=== PATIENT | female | born 1980 | race Asian ===

== ENCOUNTER 2017-12-05 12:55 | Outpatient (CLI) | payer OTHER ==
[2017-12-05 13:22] VITALS: BP 105/58
[2017-12-05] MEDS ORDERED: SODIUM CHLORIDE FLUSH 0.9% 10 ML SYRINGE ONE ×2 (13:26→14:53)
[2017-12-05 14:02] LABS: BILIRUBIN,URINE NEGATIVE (NEGATIVE); GLUCOSE, URINE (UA) NEGATIVE (NEGATIVE); KETONES,URINE (UA) NEGATIVE (NEGATIVE); LEUKOCYTE ESTERASE, URINE NEGATIVE (NEGATIVE); NITRITE,URINE NEGATIVE (NEGATIVE); OCCULT BLOOD,URINE NEGATIVE (NEGATIVE); PH,URINE 6.5 PH (5.0-7.5); PROTEIN,URINE NEGATIVE (NEGATIVE); UROBILINOGEN,URINE 0.2 (NORMAL) E.U./dL (NORMAL)
[2017-12-05 14:09] LABS: CLARITY,URINE CLEAR (CLEAR)
[2017-12-05] MEDS ORDERED: LACTATED RINGERS 1,000 ML IV ONE (14:49)
[2017-12-05] MEDS ORDERED: NIFEdipine 10 MG CAPSULE PO PRN (15:40)
== END 2017-12-05 17:00 | disposition home or self-care (01) ==
LOC: WFO 12:55 → FBP 13:02 → WFO 17:00
PROVIDERS: ATTEND Obstetrics & Gynecology
DX: O26.893 Other specified pregnancy related conditions, third trimester (principal); R42 Dizziness and giddiness; Z3A.32 32 weeks gestation of pregnancy
CPT/HCPCS: 81003; 82731; 87210; 87491; 87591; 99213; A9270; J7120; 81001

== ENCOUNTER 2017-12-25 22:47 | Outpatient (CLI) | payer OTHER | END 2017-12-25 22:48 | disposition home or self-care (01) | LOC: LAB.R 22:47 | PROVIDERS: ATTEND Obstetrics & Gynecology | DX: Z3A.35 35 weeks gestation of pregnancy (principal) | CPT/HCPCS: 87077; 87081 ==

== ENCOUNTER 2018-01-21 14:41 | Outpatient (CLI) | payer OTHER ==
[2018-01-21 14:56] LABS: BASOPHILS % (AUTO) 0.6 %; EOSINOPHILS # (AUTO) 0.2 10^3/uL (0.0-0.7); EOSINOPHILS % (AUTO) 3.2 %; HGB - HEMOGLOBIN 12.2 g/dL (12.0-16.0); LYMPHOCYTES # (AUTO) 1.4 10^3/uL (1.5-3.5); LYMPHOCYTES % (AUTO) 21.8 %; MEAN CORPUSCULAR HEMOGLOBIN 32.7 pg (27.0-31.0); MEAN CORPUSCULAR HGB CONC 34.8 g/dL (32.0-36.0); MEAN CORPUSCULAR VOLUME 94.1 fL (81.0-99.0); MEAN PLATELET VOLUME 8.5 fL (7.9-10.8); MONOCYTES # (AUTO) 0.6 10^3/uL (0.0-1.0); MONOCYTES % (AUTO) 9.8 %; NEUTROPHILS # (AUTO) 4.2 10^3/uL (1.5-6.6); NEUTROPHILS % (AUTO) 64.6 %; PLT - PLATELET COUNT 257 10^3/uL (130-450); RED BLOOD COUNT 3.73 10^6/uL (4.20-5.40); RED CELL DISTRIBUTION WIDTH 13.5 % (12.0-15.0); WHITE BLOOD COUNT 6.5 x10^3/uL (4.8-10.8)
== END 2018-01-21 14:42 | disposition home or self-care (01) ==
LOC: LAB 14:41
PROVIDERS: ATTEND Obstetrics & Gynecology
DX: Z01.812 Encounter for preprocedural laboratory examination (principal); O34.219 Maternal care for unspecified type scar from previous cesarean delivery
CPT/HCPCS: 36415; 85025; 86850; 86900; 86901

== ENCOUNTER 2018-01-23 05:05 | Inpatient (IN) | payer OTHER ==
--- NOTE | 2018-01-22 08:18 | PREOP HISTORY & PHYSICAL ---
DATE OF SERVICE: 01/23/2018 Physician: Enedina Fishman DO ANTICIPATED DATE OF PROCEDURE: 01/23/2018 IDENTIFICATION: This is a 37-year-old G2, P1-0-0-1 with a 39-6/7-week intrauterine . EDC is 01/24/2018. LMP is 04/19/2017 with 11-week ultrasound consistent with dates. HISTORY OF PRESENT ILLNESS: The patient presents today for a preoperative visit. She has been scheduled for 01/23/2018 delivery. The patient had a delivery with her first child at 37 weeks' gestation. She spontaneously went into labor at that time and began to show nonreassuring heart tones. She had a delivery because of this. The patient has been doing well without complaint. She was a transfer of care to us at 33 weeks' gestation. She had care in [facility] in [place], [place]. She had the majority of her care there. This has been remarkable only for the patient taking progesterone due to a history of prior conization. She really has not had any labor to our knowledge. She was on progesterone until 35 weeks' gestation. PAST MEDICAL HISTORY: None. PAST SURGICAL HISTORY 1. delivery x1 at 37 weeks' gestation. 2. Cold knife cone biopsy in [place] with resolution of dysplasia. ALLERGIES: NO KNOWN DRUG ALLERGIES. MEDICATIONS: vitamins. SOCIAL HISTORY: She denies any tobacco, alcohol, or illicit drug use. The patient is from [facility]. Her is Jj, who is in the [employer]. The patient currently is a atio-fu-awiq mother. PAST OBSTETRICAL HISTORY: One 37-week delivery secondary to nonreassuring heart tones. She plans to have more children. Her son is Abbi. This is a female fetus with anticipated name of Moni. PAST GYNECOLOGIC HISTORY: Status post cold knife cone biopsy. FAMILY HISTORY: Noncontributory. REVIEW OF SYSTEMS: Negative unless otherwise stated. She denies any nausea, vomiting, fevers, chills, diarrhea, or constipation. OBJECTIVE VITAL SIGNS: Weighs 162.8 pounds. Height is 5 feet. Blood pressure is 116/70. GENERAL: The patient is a well-developed, well-nourished [place] female in no apparent distress. She is alert and oriented x3. The patient does speak Spanish very well. HEENT: Within normal limits. CARDIOVASCULAR: Rate is regular, no murmurs or rubs. PULMONARY: Lungs are clear to auscultation bilaterally. ABDOMEN: Gravid, nontender. Fundal height is 40 cm. Baby is vertex. EFW is 8 pounds. STUDIES labs show that she is rubella immune, hepatitis B surface antigen nonreactive, RPR nonreactive, A positive, antibody screen negative. Cystic fibrosis screen is negative. The 11/05/2017 labs show white count 8.9, H and H 11.5 and 33.5, platelets 358. One-hour GTT of 104. Negative urine GC and CT in January 2017, and a Pap smear and HPV in October 2016 were both negative. She had a 08/22/2017 anatomical survey showing a cervical length of 3.6 cm with a 3-vessel umbilical cord. Normal anatomy and posterior placenta. GBS is positive. ASSESSMENT 1. A 37-year-old G2, P1-0-0-1 with a 39-6/7-week intrauterine . 2. History of delivery x1. 3. Group B streptococcus positive. PLAN 1. We will proceed to a scheduled repeat delivery on 01/23/2018. 2. We should get a CBC, type and screen today for her preop labs. 3. We will give the patient penicillin in the event that she goes into labor or spontaneously ruptures her membranes prior to her scheduled delivery. 4. I counseled the patient to take ibuprofen and Tylenol os her main form of pain control after surgery. She has been given a prescription for oxycodone should she have any breakthrough pain. 5. Patient to return on Sunday for removal of Prevena wound VAC. TD: 01/21/2018 15:09 TERE
[2018-01-23] MEDS ORDERED: CITRIC ACID/SODIUM CITRATE 15 ML UDC PO ONE (05:30)
[2018-01-23] MEDS ORDERED: ceFAZolin 2 GM/50 ML 2 GM/50 ML BAG IV ONE (05:30)
[2018-01-23] MEDS ORDERED: ONDANSETRON 4 MG/2 ML VIAL IVP PRN ×2 (05:30→08:54)
[2018-01-23] MEDS ORDERED: SODIUM CHLORIDE FLUSH 0.9% 10 ML SYRINGE IVP PRN (05:30)
[2018-01-23] MEDS: LACTATED RINGERS 1,000 ML IV SCH ×2 (05:45→16:30)
--- NOTE | 2018-01-23 07:02 | ANESTHESIA ---
Pre-Anesthesia VS, & Labs - Diagnosis Previous - Procedure Repeat c/s Height 5 ft 1 in Weight (kg) 73.936 kg - NPO >8 hours - Is Patient ?: Yes Home Medications and Allergies Active Medications Lactated Ringer's (Lr) 1,000 mls @ 150 mls/hr IV .Q6H40M CORRINA Oxytocin/Sodium Chloride (Pitocin/Sodium Chloride) 500 mls @ 1 mls/hr IV TITR CORRINA; Protocol Ondansetron HCl (Zofran Inj) 4 mg IVP Q4H PRN PRN Reason: Nausea / Vomiting Sodium Chloride (Normal Saline Flush 0.9%) 10 ml IVP PRN PRN PRN Reason: NEEDED PER PROVIDER ORDERS Sodium Chloride (Normal Saline Flush 0.9%) 10 ml IVP 0100,0900,1700 CORRINA Allergies/Adverse Reactions: Allergies Allergy/AdvReac Type Severity Reaction Status Date / Time No Known Drug Allergies Allergy Verified 01/23/18 06:20 Anes History & Medical History - Medical History Cardiovascular: reports: None Pulmonary: reports: None Gastrointestinal: reports: GERD (during ) Urinary: reports: None Neuro: reports: None Musculoskeletal: reports: None Endocrine/Autoimmune: reports: None Blood Disorders: reports: None Skin: reports: None Smoking Status: Former smoker (quit 4-5 years ago) Psychosocial: reports: No issues indicated - Surgical History Gynecologic: section, LEEP (Cervical surgery) - Obstetrical History : 2 Parity: 1 Events: positive: None Complications: positive: None Exam General: Alert, Oriented x3, Cooperative, No acute distress Dental: WNL Mouth Openin Fingerbreadth Mallampati classification: III Thyromental Distance: 4-6 cm Respiratory: Lungs clear, Normal breath sounds, No respiratory distress, No accessory muscle use Cardiovascular: Regular rate, Normal S1, Normal S2, No murmurs Mental/Cognitive Status: Alert/Oriented X3, Normal for patient Cognitive Status: Within normal limits Plan Anesthesia Type: Spinal Consent for Procedure(s) Verified and Reviewed: Yes Code Status: Attempt Resuscitation ASA classification: 2-Mild systemic disease Is this case an emergency?: No
[2018-01-23] MEDS ORDERED: OXYTOCIN/SODIUM CHLORIDE 500 ML IV SCH (07:30)
[2018-01-23] MEDS ORDERED: LACTATED RINGERS 1,000 ML IV ONE (07:59)
[2018-01-23] MEDS ORDERED: ePHEDrine 50 MG/ML VIAL IVP ONE (08:00)
[2018-01-23] MEDS ORDERED: ONDANSETRON 4 MG/2 ML VIAL IVP ONE (08:00)
[2018-01-23] MEDS ORDERED: fentaNYL 100 MCG/2 ML VIAL IVP ONE (08:00)
[2018-01-23] MEDS ORDERED: MORPHINE 10 MG/ML VIAL IVP ONE (08:00)
[2018-01-23] MEDS ORDERED: KETOROLAC 30 MG/ML VIAL IVP ONE (08:00)
[2018-01-23] MEDS ORDERED: NALBUPHINE 10 MG/ML AMP IVP PRN (08:54)
--- NOTE | 2018-01-23 08:58 | OPERATIVE REPORT ---
Operative Report - General Admit Date: 01/23/18 - Other Other Information/Narrative: Date of Operation: 01/23/2018 Surgeon: Enedina Fishman DO FACOG Nnp: NITIN Parks Production Control Planner: Shakira Owens CRNA Anesthesia: Spinal Pre-op Dx: 1. 37 yo with a 39w6d IUP 2. Prior CD x 1 Post-op Dx: 1. 37 yo with a 39w6d IUP 2. Prior CD x 1 Procedure: Repeat CD via low transverse incision Findings: Viable female fetus, VTX, "Avalyn." Apgars 9/9. Normal uterus, ovaries and fallopian tubes. Nuchal cord x 1 reduced. Specimens: 1. Cord blood 2. Placenta (to medical waste) EBL: 500 mL Drains: 1. Mcbride catheter to gravity 2. Prevena wound vacuum Complications: None [id number]
[2018-01-23] MEDS ORDERED: MAGNESIUM HYDROXIDE 2,400 MG/30 ML UDC PO PRN (08:59)
[2018-01-23] MEDS: SODIUM CHLORIDE FLUSH 0.9% 10 ML SYRINGE IVP SCH ×3 (11:13→17:16)
[2018-01-23] MEDS: oxyCODONE 5 MG TABLET PO SCH ×4 (11:36→20:43)
[2018-01-23] MEDS: DOCUSATE SODIUM 100 MG CAPSULE PO SCH (11:36)
[2018-01-23] MEDS: ACETAMINOPHEN 500 MG TABLET PO SCH ×2 (12:19→20:28)
--- NOTE | 2018-01-23 13:25 | OPERATIVE REPORT ---
DATE OF OPERATION: 01/23/2018 SURGEON: Enedina Fishman DO, FELIPA SAMPLE PATTERNMAKER: Madina Sumner CNM, PORSHA TILE ERECTOR: Shakira Owens CRNA ANESTHESIA: Spinal PREOPERATIVE DIAGNOSES 1. A 37-year-old G2, P1-0-0-1, at 39 and 6/7 week intrauterine . 2. Prior delivery x1. POSTOPERATIVE DIAGNOSES 1. A 37-year-old G2, P1-0-0-1, at 39 and 6/7 week intrauterine . 2. Prior delivery x1. PROCEDURE: Repeat delivery via low transverse uterine incision. FINDINGS: Viable female in vertex presentation named Shira. Apgars 9 and 9 at 1 and 5 minutes respectively. Otherwise normal uterus, ovaries and fallopian tubes. Nuchal cord x1 reduced. SPECIMENS: 1. Cord blood. 2. Placenta sent to medical waste. ESTIMATED BLOOD LOSS: 500 mL DRAINS 1. One Mcbride catheter to gravity. 2. Prevena wound vacuum. COMPLICATIONS: None. HISTORY OF PRESENT ILLNESS: The patient is a patient of [facility] with whom we have been seeing throughout her course. She was seen initially in [place] and later transferred care here to [facility]. The patient's has been significant for a prior delivery at 37 weeks secondary to nonreassuring heart tones. Otherwise has been an unremarkable . I discussed with the patient the risks, benefits, alternatives, indications, and expectations of a repeat delivery. Included in our discussion were the risks of hemorrhage, infection, damage to surrounding organs, which may include, but are not limited to an inadvertent laceration, cauterization or ligation of the adjacent intestines, bladder and ureters. Furthermore, the patient would most likely need to have a repeat delivery for any future pregnancies that she has given that this is her second delivery. After all of the patient's questions were answered to her satisfaction, she verbalized her desire to proceed with surgery. Consent forms have been signed. OPERATION IN DETAIL: The patient was identified and consented, taken to the operating room where IV access was already in place. She was then given satisfactory spinal anesthesia per Shakira Owens. Sequential compression devices were placed on her lower extremities and turned on. The patient was given 2 grams of Ancef prior to incision. The patient was then prepped and draped in normal sterile fashion in the dorsal supine position with a leftward tilt. A timeout was performed, which correctly identified the patient, site of procedure and procedure itself. Skin testing showed satisfactory anesthesia. The Pfannenstiel skin incision was made approximately 2 fingerbreadths above the level of pubic symphysis. It was then carried to the underlying layer of fascia with electrocautery. The fascia was then nicked in the midline and extended laterally. Rectus muscle was then dissected off the fascia. The rectus muscles were then sharply in the midline and the peritoneum entered bluntly. Peritoneum was then extended superiorly and inferiorly. A bladder flap was then created by dissecting off the vesicouterine peritoneum. The hysterotomy was made in the lower uterine segment in a transverse fashion. Amniotomy revealed clear fluid. With the help of fundal pressure, as well as a disc vacuum, the head was delivered. Nose and mouth were suctioned with a bulb syringe. Nuchal cord x1 was reduced. Again, with the help of fundal pressure, the delivered through the hysterotomy. Nose and mouth were suctioned upon delivery of the fetus. The umbilical cord was doubly clamped and cut and the infant was then handed off to the waiting OB nurses. Specimen of cord blood was obtained and sent off. The uterus was then maternal massaged and placenta delivered manually The uterus was then delivered out of the abdomen and cleared of all clots and debris. The hysterotomy was closed with two stitches of 0 Vicryl, first in a running locked fashion and then in a running fashion. Hemostasis was noted. The uterus was then returned to the abdomen and the abdomen was then copiously irrigated. Hemostasis was noted. The peritoneum was then closed with a running stitch of 2-0 Vicryl. The same stitch was used to reapproximate the rectus muscles. Fascia was then closed with 0 Vicryl. Oni fascia was then reapproximated with a single running stitch of 2-0 Vicryl. The skin was then finally closed with 4-0 Monocryl. A Prevena wound VAC was placed on top of the incision and turned on. The patient tolerated the procedure well and was taken back to the recovery room in stable and awake condition. She will be given routine care including aggressive pain control with routine Celebrex and Tylenol. She will be given oxycodone for any breakthrough pain, she may experience. All sponge, lap, and needle counts were correct x2 as per nurse report. TD: 01/23/2018 09:10 TERE
[2018-01-23] MEDS: CELECOXIB 100 MG CAPSULE PO SCH ×2 (13:43→20:28)
[2018-01-23] MEDS: SIMETHICONE CHEW 80 MG TABLET PO SCH ×2 (14:38→17:17)
[2018-01-24] MEDS: DOCUSATE SODIUM 100 MG CAPSULE PO SCH ×3 (00:15→20:37)
[2018-01-24] MEDS: oxyCODONE 5 MG TABLET PO SCH ×6 (00:16→20:36)
[2018-01-24] MEDS: ACETAMINOPHEN 500 MG TABLET PO SCH ×3 (04:18→20:35)
[2018-01-24] MEDS: SODIUM CHLORIDE FLUSH 0.9% 10 ML SYRINGE IVP SCH (04:19)
--- NOTE | 2018-01-24 08:37 | PROVIDER PROGRESS NOTE ---
Subjective - Prog Note Date Prog Note Date: 01/24/18 Prog Note Time: 08:35 - Subjective Pt reports feeling: Improved Subjective: Lying in bed, breast feeding baby. Female visitor helping tremendously. Mcbride and saline lock removed. States pain is controlled-- took oxycodone last PM. Was dizzy when she ambulated for the first time. Objective - Vital Signs/Intake & Output Vital Signs: Vital Signs x48h Temp Pulse Resp BP Pulse Ox 01/24/18 04:46 97.5 F L 67 16 122/57 L 96 Intake & Output: Intake & Output 01/21/18 01/22/18 01/23/18 01/24/18 23:59 23:59 23:59 23:59 Intake Total 4000 Output Total 3325 2049 Balance 675 -2049 - Objective General Appearance: positive: No acute distress Eyes Bilateral: positive: Normal inspection Abdomen: positive: Non-tender (Wound vac in place and working well) Neurologic/Psychiatric: positive: Oriented x3 Assessment/Plan - Problem List (1) delivery delivered Impression: 37 yo S/p repeat CD 01/23/2018, POD #1 Normal recovery Routine care Shower today Hopefully home tomorrow. Baby's weight 9 lbs 6 oz.
[2018-01-24] MEDS: SIMETHICONE CHEW 80 MG TABLET PO SCH ×3 (08:39→16:55)
[2018-01-24] MEDS: CELECOXIB 100 MG CAPSULE PO SCH ×2 (08:39→20:36)
[2018-01-25] MEDS: oxyCODONE 5 MG TABLET PO SCH ×2 (01:00→06:12)
--- NOTE | 2018-01-25 05:26 | DISCHARGE SUMMARY ---
Physician: Enedina Fishman DO FACOG DATE OF ADMISSION: 01/23/2018 DATE OF DISCHARGE: 01/25/2018 DIAGNOSES ON ADMISSION 1. A 37-year-old G2, P1-0-0-1 with a 39 and 6/7 week intrauterine . 2. History of delivery x1. DIAGNOSES AT DISCHARGE 1. A 37-year-old G2, P2-0-0-2, status post repeat delivery on 01/23/2018. 2. Normal recovery. BRIEF HISTORY: This is a patient of [facility] who presented on 01/23/2018 for a scheduled repeat delivery. The patient underwent an unremarkable delivery and had a viable female named Moni. Apgars were 9 and 9 at 1 and 5 minutes respectively and she weighed 4368 grams. The patient's estimated blood loss was 500 mL and there were no complications. She did receive a Prevena wound VAC for postop healing. The patient's postoperative course has been unremarkable. She is ambulating and tolerating her diet. The patient's pain was controlled with oral medications and she is able to urinate without difficulty. The patient will be discharged to home on postoperative day #2, 01/25/2018. She will be given instructions to take ibuprofen and Tylenol as a main form of pain control. Prescription has been given to her already for oxycodone for any breakthrough pain she may experience. The patient will see me at the office next week for removal of her Prevena wound VAC. She is to call should she have any worsening fevers, chills, abdominal pain or vaginal bleeding. TD: 01/24/2018 18:30 TERE
[2018-01-25] MEDS: ACETAMINOPHEN 500 MG TABLET PO SCH (06:12)
--- NOTE | 2018-01-25 09:19 | PROVIDER PROGRESS NOTE ---
Subjective - Prog Note Date Prog Note Date: 01/25/18 Prog Note Time: 09:17 - Subjective Pt reports feeling: Improved (Patient sitting in bed with baby. at bedside. Feeling well. Has not taken pain meds x 12 hours. Would like to go home.) Objective - Vital Signs/Intake & Output Vital Signs: Vital Signs x48h Temp Pulse Resp BP Pulse Ox 01/25/18 07:43 97.5 F L 75 16 120/71 97 01/25/18 02:00 97.5 F L 71 18 127/60 99 Intake & Output: Intake & Output 01/22/18 01/23/18 01/24/18 01/25/18 23:59 23:59 23:59 23:59 Intake Total 4000 500 500 Output Total 3325 2050 Balance 675 -1550 500 - Objective General Appearance: positive: No acute distress Eyes Bilateral: positive: Normal inspection Abdomen: positive: Non-tender (Firm fundus. Wound vac in place and working well.) Skin: positive: Color nml Neurologic/Psychiatric: positive: Oriented x3 Assessment/Plan - Problem List (1) delivery delivered Impression: 37 yo S/p repeat CD 01/23/2018 Normal recovery Discharge to home today. Follow up with myself at [facility] on Sunday or Sunday for removal of her Prevena wound vac Call for worsening fevers, chills, abdominal pain or vaginal bleeding. Discharge Plan Disposition: 01 Home, Self Care Condition: Good Diet: Regular Activity Restrictions: Activity as Tolerated (No lifting more than a gallon of milk) Weight Bearing: Full Weight No Smoking: If you smoke, Please STOP! Call for help.
[2018-01-25] MEDS: DOCUSATE SODIUM 100 MG CAPSULE PO SCH (09:37)
[2018-01-25] MEDS: CELECOXIB 100 MG CAPSULE PO SCH (09:37)
[2018-01-26] MEDS: CELECOXIB 100 MG CAPSULE PO SCH ×2 (03:21→08:41)
[2018-01-26] MEDS: oxyCODONE 5 MG TABLET PO SCH ×4 (03:21→08:56)
[2018-01-26] MEDS: ACETAMINOPHEN 500 MG TABLET PO SCH ×3 (03:21→03:30)
[2018-01-26] MEDS: DOCUSATE SODIUM 100 MG CAPSULE PO SCH ×3 (03:21→08:41)
[2018-01-26] MEDS: SIMETHICONE CHEW 80 MG TABLET PO SCH ×3 (03:22→08:41)
[2018-01-26 12:20] VITALS: BP 121/66
== END 2018-01-26 12:23 | disposition home or self-care (01) | DRG 788 ==
LOC: FBP 05:05
PROVIDERS: ADMIT Obstetrics & Gynecology; ATTEND Obstetrics & Gynecology
PROC: 10D00Z1 Extraction of Products of Conception, Low, Open Approach (ICD-10-PCS; principal; 2018-01-23 07:30)
DX: O34.211 Maternal care for low transverse scar from previous cesarean delivery (principal); N85.8 Other specified noninflammatory disorders of uterus; O99.824 Streptococcus B carrier state complicating childbirth; O69.81X0 Labor and delivery complicated by cord around neck, without compression, not applicable or unspecified; Z3A.39 39 weeks gestation of pregnancy; Z37.0 Single live birth

== ENCOUNTER 2019-05-24 10:01 | Outpatient (CLI) | payer OTHER ==
[2019-05-24] MEDS ORDERED: IOVERSOL 320 50 ML VIAL ONE (10:16)
--- NOTE | 2019-05-24 21:26 | CT Report ---
Reason: LLQ ABD PAIN Procedure Date: 05/24/2019 Accession Number: [id number] / [id number] Procedure: CT - Abdomen/Pelvis WO CPT Code: Final Report FULL RESULT: EXAM: CT ABDOMEN AND PELVIS EXAM DATE:05/24/2019 11:35 AM CLINICAL HISTORY: LLQ ABD PAIN. COMPARISONS: None. TECHNIQUE: Routine helical CT imaging was performed through the abdomen and pelvis without IV contrast. Oral contrast: Yes.. Reconstructions: Coronal and sagittal. In accordance with CT protocol optimization, one or more of the following dose reduction techniques were utilized for this exam: automated exposure control, adjustment of mA and/or KV based on patient size, or use of iterative reconstruction technique. FINDINGS: Lung Bases: Unremarkable. Liver: Unremarkable. Gallbladder/Bile Ducts: Unremarkable. Spleen: Unremarkable. Pancreas: Unremarkable. Adrenal Glands: Unremarkable. Kidneys: Unremarkable. Peritoneal Cavity/Bowel: Unremarkable. The bowel is normal in contour and caliber. The appendix is normal. Pelvic Organs: Unremarkable. Vasculature: Unremarkable. Bones: Unremarkable. Other: None. IMPRESSION: Normal noncontrast enhanced abdominal pelvic CT. No hernia seen. RADIA
== END 2019-05-24 10:02 | disposition home or self-care (01) ==
LOC: DI 10:01
PROVIDERS: ATTEND Physician Assistant
DX: R10.32 Left lower quadrant pain (principal)
CPT/HCPCS: 74176

== ENCOUNTER 2020-10-15 20:50 | Outpatient (CLI) | payer OTHER ==
--- NOTE | 2020-10-16 09:06 | Ultrasound Report ---
PROCEDURE: OB First Trimester w/TV INDICATIONS: OUTSIDE/PRIOR DATING DATA: Last menstrual period (LMP): 08/25/2020. LMP-based estimated date of delivery (STEVIE): 06/01/2021. First dating scan (date and location): 10/15/2020. Estimated date of delivery (STEVIE) from first dating scan: 06/08/2021. The below data below was generated using the ultrasound STEVIE of 06/08/2021 TECHNIQUE: Real-time scanning was performed of the fetus and maternal pelvic organs, with image documentation. Endovaginal scanning was also performed to better visualize the fetus and maternal ovaries. COMPARISON: None FINDINGS: Embryo: There is an intrauterine gestational sac seen, with a pole present, which measures 0.5 6 cm, which corresponds to an estimated gestational age of 6 weeks 2 days. cardiac activity is seen, with a measured heart rate of 109 bpm. No significant perigestational/subchorionic hemorrhag e can be seen. Measurement variability in dating: +/- 4 weeks by LMP, +/- 7 days by mean sac diameter (use before 6 weeks gestation if crown-rump length not able to be measured), +/- 5 days by crown-rump length (6-12 weeks gestation). Maternal organs: Ovaries demonstrate no significant abnormality. IMPRESSION: Single live intrauterine . There is a 7 day discrepancy between the estimated gestational age based upon these images and the es timate of gestational age based upon the given date of the last menstrual period. Please correlate wi th precise clinical data. Reviewed by: Jake Jean MD on 10/16/2020 8:05 AM CHARLES Approved by: Jake Jean MD on 10/16/2020 8:05 AM CHARLES Station ID: [id number]
== END 2020-10-15 20:51 | disposition home or self-care (01) ==
LOC: DI 20:50
PROVIDERS: ATTEND Obstetrics & Gynecology
DX: Z32.01 Encounter for pregnancy test, result positive (principal)

== ENCOUNTER 2020-10-19 16:09 | Outpatient (CLI) | payer OTHER ==
[2020-10-19 16:46] LABS: MUDS CUTOFF CONCENTRATIONS CUTOFF CONC BELOW:
[2020-10-19 20:41] LABS: BASOPHILS # (AUTO) 0.1 10^3/uL (0.0-0.1); BASOPHILS % (AUTO) 0.8 %; EOSINOPHILS # (AUTO) 0.6 10^3/uL (0.0-0.7); EOSINOPHILS % (AUTO) 5.8 %; HCT - HEMATOCRIT 36.5 % (37.0-47.0); LYMPHOCYTES % (AUTO) 20.7 %; MEAN CORPUSCULAR HEMOGLOBIN 29.5 pg (27.0-31.0); MEAN CORPUSCULAR HGB CONC 32.9 g/dL (32.0-36.0); MEAN CORPUSCULAR VOLUME 89.7 fL (81.0-99.0); MEAN PLATELET VOLUME 9.9 fL (7.9-10.8); MONOCYTES # (AUTO) 0.9 10^3/uL (0.0-1.0); NEUTROPHILS # (AUTO) 6.2 10^3/uL (1.5-6.6); NEUTROPHILS % (AUTO) 63.3 %; PLT - PLATELET COUNT 459 10^3/uL (130-450); RED BLOOD COUNT 4.07 10^6/uL (4.20-5.40); RED CELL DISTRIBUTION WIDTH 13.2 % (12.0-15.0); WHITE BLOOD COUNT 9.8 x10^3/uL (4.8-10.8)
[2020-10-19 21:03] LABS: BILIRUBIN,URINE NEGATIVE (NEGATIVE); GLUCOSE, URINE (UA) NEGATIVE (NEGATIVE); KETONES,URINE (UA) NEGATIVE (NEGATIVE); LEUKOCYTE ESTERASE, URINE NEGATIVE (NEGATIVE); NITRITE,URINE NEGATIVE (NEGATIVE); OCCULT BLOOD,URINE NEGATIVE (NEGATIVE); PROTEIN,URINE NEGATIVE (NEGATIVE); UROBILINOGEN,URINE 0.2 (NORMAL) E.U./dL (NORMAL)
[2020-10-19 21:11] LABS: CLARITY,URINE CLEAR (CLEAR)
[2020-10-19 21:16] LABS: RBC,URINE 0-5 /HPF (0-5); SQUAMOUS EPITHELIAL CELL,UR NONE SEEN (<= Few); WBC,URINE 0-3 /HPF (0-5)
[2020-10-19 21:17] LABS: BACTERIA,URINE None Seen /HPF (None Seen)
[2020-10-19 21:18] LABS: AMPHETAMINE SCREEN,URINE NEGATIVE (NEGATIVE); BARBITURATE SCREEN,UR NEGATIVE (NEGATIVE); BENZODIAZEPINES SCREEN, URINE NEGATIVE (NEGATIVE); COCAINE SCREEN URINE NEGATIVE (NEGATIVE); METHADONE SCREEN, URINE NEGATIVE (NEGATIVE); METHAMPHETAMINES SCREEN, URINE NEGATIVE (NEGATIVE); OPIATE SCREEN, URINE NEGATIVE (NEGATIVE); OXYCODONE SCREEN, URINE NEGATIVE (NEGATIVE); PROPOXYPHENE SCREEN, URINE NEGATIVE (NEGATIVE); THC CANNABINOID SCREEN, URINE NEGATIVE (NEGATIVE); TRICYCLIC ANTIDEPRESSANT,URINE NEGATIVE (NEGATIVE)
[2020-10-21 10:47] LABS: HEPATITIS B SURFACE ANTIGEN NON-REACTIVE (NON-REACTIVE)
[2020-10-21 10:48] LABS: HEPATITIS C ANTIBODY NON-REACTIVE (NON-REACTIVE)
[2020-10-21 13:06] LABS: HIV AG/AB 4TH GEN NON-REACTIVE (NON-REACTIVE)
== END 2020-10-19 16:10 | disposition home or self-care (01) ==
LOC: LAB.N 16:09
PROVIDERS: ATTEND Obstetrics & Gynecology
DX: Z36.89 Encounter for other specified antenatal screening (principal); Z32.01 Encounter for pregnancy test, result positive
CPT/HCPCS: 36415; 80306; 81001; 85025; 86592; 86762; 86787; 86803; 86850; 86900; 86901; 87086; 87340; 87389

== ENCOUNTER 2020-11-24 11:08 | Outpatient (CLI) | payer OTHER ==
[2020-11-24 23:04] LABS: CHLAMYDIA TRACHOMATIS DNA NEGATIVE (NEGATIVE); NEISSERIA GONORRHOEAE DNA NEGATIVE (NEGATIVE); TRICHOMONAS VAGINALIS DNA NEGATIVE (NEGATIVE)
== END 2020-11-24 23:59 | disposition home or self-care (01) ==
LOC: LAB.WC 11:08
PROVIDERS: ATTEND Obstetrics & Gynecology
DX: O09.529 Supervision of elderly multigravida, unspecified trimester (principal)
CPT/HCPCS: 87491; 87591; 87661

== ENCOUNTER 2020-11-24 11:39 | Outpatient (CLI) | payer OTHER | END 2020-11-24 11:40 | disposition home or self-care (01) | LOC: LAB 11:39 | PROVIDERS: ATTEND Obstetrics & Gynecology | DX: Z01.84 Encounter for antibody response examination (principal); O09.529 Supervision of elderly multigravida, unspecified trimester | CPT/HCPCS: 36415; 86769; 87491; 87591; 87661 ==

== ENCOUNTER 2021-01-17 16:04 | Outpatient (CLI) | payer OTHER ==
--- NOTE | 2021-01-17 18:29 | Ultrasound Report ---
PROCEDURE: OB Detailed Eval INDICATIONS: SUPERVISION OF OUTSIDE/PRIOR DATING DATA: Last menstrual period (LMP): 08/25/2020. LMP-based estimated date of delivery (STEVIE): 06/01/2021. First dating scan (date and location): 10/15/2020 at . Estimated date of delivery (STEVIE) from first dating scan: 06/08/2021. The below data below was generated using the ultrasound STEVIE of 06/08/2021 TECHNIQUE: Real-time scanning was performed of the fetus, with image documentation and biometric measurements. Endovaginal scanning: Not performed COMPARISON: OB ultrasound, 10/15/2020. FINDINGS: General: A single living intrauterine gestation is present. Presentation: Vertex Placenta: Placental position is anterior, without previa. Amniotic fluid index: not evaluated. heart rate: n.a. . Absence of heart tone Maternal cervical canal: 4.1 cm. biometrics: Biparietal diameter: 15 weeks 3 days Head circumference: 15 weeks 0 day Abdominal circumference: 15 weeks 1 day Femur length: 15 weeks 4 days Estimated gestational age from initial scan: 19 weeks 5 days. Composite gestational age from present scan: 15 weeks 2 days Estimated weight and percentile: n.a. Measurement variability in biometric dating: +/- 10 days from 12-20 weeks gestation, +/- 2 weeks from 20-30 weeks gestation, +/- 3 weeks at 30 weeks gestation or later. IMPRESSION: 1. A single intrauterine gestation with estimated gestational age 19 weeks 5 days based on the initia l dating ultrasound. There is absence of heart tone. The finding is consistent with demis e. Please correlate clinically. The preliminary result was given to Dr. Burdick by botanical technical officer. Reviewed by: German Oh MD on 01/17/2021 6:28 PM PST Approved by: German Oh MD on 01/17/2021 6:28 PM PST Station ID: [id number]
== END 2021-01-17 16:05 | disposition home or self-care (01) ==
LOC: DI 16:04
PROVIDERS: ATTEND Obstetrics & Gynecology
DX: O09.522 Supervision of elderly multigravida, second trimester (principal); Z36.89 Encounter for other specified antenatal screening; Z3A.19 19 weeks gestation of pregnancy; O36.8320 Maternal care for abnormalities of the fetal heart rate or rhythm, second trimester, not applicable or unspecified

== ENCOUNTER 2021-01-19 10:03 | Inpatient (IN) | payer OTHER ==
[2021-01-19 11:51] LABS: BASOPHILS % (AUTO) 0.6 %; EOSINOPHILS # (AUTO) 0.4 10^3/uL (0.0-0.7); EOSINOPHILS % (AUTO) 5.6 %; HCT - HEMATOCRIT 37.1 % (37.0-47.0); HGB - HEMOGLOBIN 12.2 g/dL (12.0-16.0); LYMPHOCYTES # (AUTO) 1.8 10^3/uL (1.5-3.5); MEAN CORPUSCULAR HGB CONC 32.9 g/dL (32.0-36.0); MEAN CORPUSCULAR VOLUME 91.2 fL (81.0-99.0); MONOCYTES # (AUTO) 0.4 10^3/uL (0.0-1.0); MONOCYTES % (AUTO) 5.9 %; NEUTROPHILS # (AUTO) 3.8 10^3/uL (1.5-6.6); NEUTROPHILS % (AUTO) 59.6 %; PLT - PLATELET COUNT 406 10^3/uL (130-450); RED BLOOD COUNT 4.07 10^6/uL (4.20-5.40); RED CELL DISTRIBUTION WIDTH 13.2 % (12.0-15.0); WHITE BLOOD COUNT 6.4 x10^3/uL (4.8-10.8)
[2021-01-19] MEDS ORDERED: CARBOPROST TROMETHAMINE 250 MCG/ML AMP IM PRN (13:06)
[2021-01-19] MEDS ORDERED: OXYTOCIN/SODIUM CHLORIDE 500 ML IV PRN (13:06)
[2021-01-19] MEDS ORDERED: LIDOCAINE-MPF 1% 30 ML VIAL ID PRN (13:06)
[2021-01-19] MEDS ORDERED: METHYLERGONOVINE 0.2 MG/ML VIAL IM PRN (13:06)
[2021-01-19] MEDS ORDERED: OXYTOCIN 10 UNIT/ML VIAL IM PRN (13:06)
[2021-01-19] MEDS ORDERED: TRANEXAMIC ACID IN NACL 1,000 MG/100 ML BAG IV PRN (13:06)
[2021-01-19] MEDS ORDERED: miSOPROStoL 200 MCG TABLET BC PRN (13:06)
[2021-01-19] MEDS ORDERED: SODIUM CHLORIDE FLUSH 0.9% 10 ML SYRINGE IVP PRN (13:06)
[2021-01-19] MEDS ORDERED: miSOPROStoL 100 MCG TABLET VG SCH (13:11)
[2021-01-19] MEDS ORDERED: oxyCODONE 5 MG TABLET PO PRN (13:15)
[2021-01-19] MEDS ORDERED: HYDROmorphone 1 MG/ML CARPUJECT IVP PRN (13:16)
[2021-01-19] MEDS ORDERED: miSOPROStoL 100 MCG TABLET ONE (13:26)
[2021-01-19] MEDS ORDERED: LACTATED RINGERS 1,000 ML IV SCH (14:00)
[2021-01-19] MEDS ORDERED: miSOPROStoL 100 MCG TABLET BC SCH (16:00)
[2021-01-19] MEDS ORDERED: SODIUM CHLORIDE FLUSH 0.9% 10 ML SYRINGE IVP SCH (17:00)
--- NOTE | 2021-01-19 19:58 | HISTORY & PHYSICAL EXAMINATION ---
Chief Complaint - Chief Complaint Chief Complaint: IOL for demise History of Present Illness - Admitted From Admitted From:: home - History of Present Illness HPI Comment/Other: ID: The patient is a 40-year-old at 20 weeks 0 days estimated gestational age, here for induction of labor in the setting of intrauterine demise. HPI: Patient presented for anatomy us on 01/17/21 at 19w5d and was found to have a demise. biometry was consistent with 15w2d ega. Options had been reviewed with patient on 01/17/21 at time of FAS. She opted to return to clinic on 01/18/21 for repeat bedside ultrasound to confirm findings of FAS. US in clinic again showed lack of heart tones. BPD was consistent with 15w5d. Subjectively large amount of amniotic fluid. Patient and partner are opting to proceed with induction of labor. Patient reports some spotting yesterday and some dark bleeding this am. No cramping. They are interested in cremation and autopsy with karyotyping. Her past medical history is unremarkable. Past surgical history is notable for a LEEP/cold knife conization about 10 years ago. She had her last Pap smear on 12/29/2018, which was within normal limits. She has had two prior C-sections; one with a vertical midline abdominal incision. The first was an emergent procedure for intolerance of labor. It was at term. Her partner does have HSV-2. She herself denies any history of outbreaks. She has monthly menses. Received COVID vaccination x2, the second dose on about 01/14/21. FAS on 10/18/20 showed the following findings: "General: A single living intrauterine gestation is present. Presentation: Vertex Placenta: Placental position is anterior, without previa. Amniotic fluid index: not evaluated. heart rate: n.a. . Absence of heart tone Maternal cervical canal: 4.1 cm. biometrics: Biparietal diameter: 15 weeks 3 days Head circumference: 15 weeks 0 day Abdominal circumference: 15 weeks 1 day Femur length: 15 weeks 4 days Estimated gestational age from initial scan: 19 weeks 5 days. Composite gestational age from present scan: 15 weeks 2 days Estimated weight and percentile: n.a. Measurement variability in biometric dating: +/- 10 days from 12-20 weeks gestation, +/- 2 weeks from 20-30 weeks gestation, +/- 3 weeks at 30 weeks gestation or later. " PN HX: LMP: 08/25/2020 STEVIE by LMP: 06/01/2021 US done 10/15/20 at 6.2 weeks not consistent with LMP date (off by 7 days) STEVIE by US: 06/08/2021 (final) A positive/Rubella immune VZV: immune Genetic testing: Desires; ordered 11/24 ([place], AFP at 15 weeks, CF carrier screen- reviewed need to have drawn within 4 weeks. Reviewing if PA is complete) FAS: Scheduled for 20 weeks Glucola @ 28 wks Flu: 12/22/2020 TDAP: at 28 weeks Covid: Antibody test neg. Getting vaccine at local pharmacy GBS: at 36 weeks HSV:Will treat with valacyclovir given partner hx Breast pump rx: MOD: rLTCS PP contraception: TBD. Will sign [facility] consents at 28 weeks if desires BTL PAP: 03/19/2018-normal/HPV negative PMH: Cervical dysplasia PSH: 2 C sections: 2014 [facility] CKC/LEEP in 2011 in [facility] OBHX: G1: 11/11/2014 at 37w + 3d CS for NRFHT's 2ndry umbilical cord. Vertical skin. Male 3212g, [facility]. Name [place] G2: 01/23/2018 at 30w RLTCS, , [place] Female, [place] G3: current Pap smear on 12/29/2018, NILM Her partner does have HSV-2. She herself denies any history of outbreaks. Prior hx of CT. She has monthly menses. FH: Brother: asthma Maternal Grandmother, age 36; stomach cancer Paternal Grandmother:HTN SOC HX: Lives in [place] with and 2 children SAHM Originally from [facility] FOB active duty [place] Denies RICCI ROS: As per HPI, remaining systems negative PE: VS: 97.9 71 105/60 18 GEN: NAD HEENT: NCAT CV: RRR RESP: CTAB ABD: S&NT/ND. FF well below umbi. Well healed Pfannenstiel NEURO: A&O PSYCH: appropriate affect EXT: WWP, no LE edema, NT PELVIC: NEFG, Nl BSUMA SVE: FT/50/high, small amoutn of VB A/P: The patient is a 40-year-old at 20 weeks 0 days estimated gestational age, here for induction of labor in the setting of intrauterine demise. IOL: Hx of uterine incision. IUP<24 weeks with biometry c/w 15w2d -Misoprostol 400 mcg VG loading dose -Repeat dosing Q4H with 200 mcg BC -Pitocin as indicated -Consider AROM as indicated PAIN: Reviewed that patient has all options available to her -Wants to be coherent at time of delivery FWB: Known IUFD -Discussed desire to see and possibly hold remains -Desires cremation -Desires genetic testing and autopsy if possible -Confirmed maternal blood type to be Rh positive Inpatient care History - Past Medical History Cardiovascular: reports: None Respiratory: reports: None Neuro: reports: None Endocrine/Autoimmune: reports: None GI: reports: GERD (during ) : reports: None Musculoskeletal: reports: None Derm: reports: None - Past Surgical History /COPY DIRECTOR: reports: section, LEEP (Cervical surgery) Meds/Allgy - Allergies Allergies/Adverse Reactions: Allergies Allergy/AdvReac Type Severity Reaction Status Date / Time No Known Drug Allergies Allergy Verified 01/23/18 06:20 Exam - Vital Signs Vital Signs: Vital Signs x48h Temp Pulse Resp BP Pulse Ox 01/19/21 19:00 99.1 F 74 18 118/67 01/19/21 17:00 98.2 F 78 100/61 100 01/19/21 14:13 98.2 F 81 18 105/52 L 100 Conclusion/Plan - Lab Results Fish Bones: 01/19/21 11:40
--- NOTE | 2021-01-19 21:25 | DELIVERY NOTE ---
Delivery Note - Labor Labor: positive: Spontaneous, Other (misoprostol induction) - Delivery Method Delivery Method: positive: Spontaneous vaginal delivery - Cervical Ripening Method Cervical Ripening Method: positive: Misoprostil - Presentation Presentation: positive: Vertex - Nuchal Cord Nuchal Cord: positive: None - Anesthetic Anesthetic Type: - Amniotic Fluid Description Amniotic Fluid Description: positive: Bloody - Episiotomy Type Episiotomy Type: positive: None - Laceration Laceration: positive: None - Delivery Outcome Delivery Outcome: positive: Miscarriage, Stillbirth - Placenta Placenta: positive: Intact, Spontaneous, Expressed - Estimated Blood Loss Estimated Blood Loss (in cc): 10 - Post Delivery Events Post Delivery Events: positive: No post delivery events - Delivery Comments (Free Text/Narrative) Delivery Comments (Free Text/Narrative): Patient is a 40 yo at 20w0d admitted with known intrauterine demise. Patient had undergone anatomy us at 19w5d and IUFD was noted. biometry was 15w2d. She presents for induction of labor. Initial SVE was FT/50/high. She was given one dose of misoprostol 400 mcg VG. She received a second dose of misoprostol 200 mcg BC 4 hours after initial dose. Spontaneous rupture of membranes at 17:57 pm, notable for a large amount of bloody fluid. Spontaneous passage of fetus at 18:27. Apgars 0/0. Weight 65g. Placenta delivered at 18:56. It was examined and found to be intact. No lacerations. EBL 10 mL. Procedure was well tolerated and without complication. Gender difficult to discern given early gestational age.
[2021-01-19] MEDS ORDERED: SIMETHICONE CHEW 80 MG TABLET PO PRN (21:38)
[2021-01-19] MEDS ORDERED: ACETAMINOPHEN 500 MG TABLET PO PRN (21:38)
[2021-01-19] MEDS ORDERED: DOCUSATE SODIUM 100 MG CAPSULE PO PRN (21:38)
[2021-01-19] MEDS ORDERED: ONDANSETRON ODT 4 MG TABLET TL PRN (21:38)
[2021-01-19] MEDS ORDERED: IBUPROFEN 600 MG TABLET PO PRN (21:38)
[2021-01-19] MEDS ORDERED: HYDROCORTISONE 1% CREAM 28 GM TUBE PR PRN (21:38)
[2021-01-19] MEDS ORDERED: diphenhydrAMINE 25 MG CAPSULE PO PRN (21:40)
[2021-01-20 07:38] VITALS: BP 115/74
--- NOTE | 2021-01-20 09:45 | Discharge Plan ---
Discharge Plan Problem Reviewed?: Yes Disposition: Home, Self Care Condition: Good Diet: Regular Plan of Treatment: Nothing in the vagina for 6 weeks: No intercourse, tampons, douching Call for: -Fever greater than 100.5 -Pain that does not improve with pain medication -Heavy bleeding in which you are soaking a pad an hour for 2 hours in a row No tub baths or hot tubs for 4 weeks Ibuprofen 600 mg by mouth every 6 hours as needed for pain Acetaminophen 500-1000 mg by mouth every 8 hours as needed for pain Docusate 100-200 mg by mouth twice a day as needed for constipatio No Smoking: If you smoke, Please STOP! Call for help.
== END 2021-01-20 10:43 | disposition home or self-care (01) | DRG 807 ==
LOC: WFO 10:03 → FBP 10:06 → WFO 13:05 → FBP 13:06
PROVIDERS: ADMIT Obstetrics & Gynecology; ATTEND Obstetrics & Gynecology
PROC: 10D17Z9 Manual Extraction of Products of Conception, Retained, Via Natural or Artificial Opening (ICD-10-PCS; principal; 2021-01-19)
PROC: 3E0P7VZ Introduction of Hormone into Female Reproductive, Via Natural or Artificial Opening (ICD-10-PCS; 2021-01-19)
PROC: 3E0DXGC Introduction of Other Therapeutic Substance into Mouth and Pharynx, External Approach (ICD-10-PCS; 2021-01-19)
DX: O36.4XX0 Maternal care for intrauterine death, not applicable or unspecified (principal); Z37.1 Single stillbirth; Z3A.20 20 weeks gestation of pregnancy
CPT/HCPCS: 36415; 85025; 86850; 86900; 86901; A9270

== ENCOUNTER 2021-01-26 09:36 | Outpatient (CLI) | payer OTHER ==
[2021-01-28 12:01] LABS: CMV DNA QN RT PCR NOT DETECTED; SOURCE WHOLE BLOOD
== END 2021-01-26 09:37 | disposition home or self-care (01) ==
LOC: LAB 09:36
PROVIDERS: ATTEND Obstetrics & Gynecology
DX: O36.4XX0 Maternal care for intrauterine death, not applicable or unspecified (principal)
CPT/HCPCS: 36415; 81240; 81599; 85300; 85613; 85730; 86147; 86695; 86696; 86777; 86778; 87497

== ENCOUNTER 2021-02-18 15:13 | Outpatient (CLI) | payer OTHER | END 2021-02-18 15:14 | disposition home or self-care (01) | LOC: LAB 15:13 | PROVIDERS: ATTEND Obstetrics & Gynecology | DX: O36.4XX0 Maternal care for intrauterine death, not applicable or unspecified (principal) | CPT/HCPCS: 36415; 84702 ==

== ENCOUNTER 2021-02-22 15:40 | Outpatient (CLI) | payer OTHER | END 2021-02-22 15:41 | disposition home or self-care (01) | LOC: LAB 15:40 | PROVIDERS: ATTEND Obstetrics & Gynecology | DX: O36.4XX0 Maternal care for intrauterine death, not applicable or unspecified (principal) | CPT/HCPCS: 81241; 81599 ==

== ENCOUNTER 2021-04-22 08:00 | Outpatient (CLI) | payer OTHER | END 2021-04-22 23:59 | disposition home or self-care (01) | LOC: LAB.N 08:00 | PROVIDERS: ATTEND Family Medicine | DX: R05.3 Chronic cough (principal); Z20.822 Contact with and (suspected) exposure to COVID-19 ==

== ENCOUNTER 2021-06-28 13:05 | Outpatient (CLI) | payer OTHER ==
--- NOTE | 2021-06-28 16:21 | Ultrasound Report ---
PROCEDURE: OB First Trimester w/TV INDICATIONS: SUPERVISION OF NORMAL OUTSIDE/PRIOR DATING DATA: Last menstrual period (LMP): 04/21/2021. LMP-based estimated date of delivery (STEVIE): 01/26/2022. First dating scan (date and location): 06/28/2021. Estimated date of delivery (STEVIE) from first dating scan: 01/31/2022. The below data below was generated using the ultrasound derived STEVIE of 01/31/2022 TECHNIQUE: Real-time scanning was performed of the fetus and maternal pelvic organs, with image documentation. Endovaginal scanning was also performed to better visualize the fetus and maternal ovaries. COMPARISON: None. FINDINGS: Mean gestational sac diameter 3.5 cm. [place]-rump length 2.3 cm. heart rate 164 bpm. Ovaries normal. Right corpus luteum cyst noted. No pelvic free fluid identified. IMPRESSION: Single live intrauterine gestation, estimated age 9 weeks 0 days. Reviewed by: Sal Perez MD on 06/28/2021 4:20 PM PDT Approved by: Sal Perez MD on 06/28/2021 4:20 PM PDT Station ID: [id number]
== END 2021-06-28 13:06 | disposition home or self-care (01) ==
LOC: DI 13:05
PROVIDERS: ATTEND Obstetrics & Gynecology
DX: O34.81 Maternal care for other abnormalities of pelvic organs, first trimester (principal); N83.11 Corpus luteum cyst of right ovary; Z3A.09 9 weeks gestation of pregnancy

== ENCOUNTER 2021-07-07 08:00 | Outpatient (CLI) | payer OTHER | END 2021-07-07 08:01 | disposition home or self-care (01) | LOC: LAB.N 08:00 | PROVIDERS: ATTEND Physician Assistant | DX: B34.9 Viral infection, unspecified (principal); Z20.822 Contact with and (suspected) exposure to COVID-19 ==

== ENCOUNTER 2021-07-11 21:30 | Emergency (ER) | payer OTHER ==
--- NOTE | 2021-07-11 21:54 | ED Physician Documentation ---
History of Present Illness - Stated complaint Stated Complaint: BLEEDING - Chief complaint Chief Complaint: General - History obtained from History obtained from: Patient - Additonal information Additional information: Patient is a 40-year-old female G4, P2, history of demise at 19 weeks in January 2021, who is approximately 11 weeks presenting for evaluation of vaginal bleeding that started this evening with passage of clot. Patient reports having some pinkish discharge this morning and lower abdominal discomfort intermittently through the day. She denies sexual intercourse or unusual activity today.She has not yet seen her OB for this . She denies headache, dizziness, difficulty breathing, upper abdominal pain or vomiting. 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 Review of Systems Constitutional: denies: Fever Eyes: denies: Discharge Nose: denies: Congestion Cardiac: denies: Chest pain / pressure Respiratory: denies: Dyspnea GI: denies: Abdominal Pain, Vomiting : reports: Vaginal bleeding. denies: Dysuria Skin: denies: Rash Musculoskeletal: denies: Back pain Neurologic: denies: Syncope PD PAST MEDICAL HISTORY - Past Medical History Past Medical History: Yes Cardiovascular: None Respiratory: None Neuro: None Endocrine/Autoimmune: None GI: GERD SOCIAL SCIENCES DEPARTMENT CHAIR: Miscarriage(s) : None Musculoskeletal: None Derm: None - Past Surgical History Past Surgical History: Yes /SOCIAL SCIENCES DEPARTMENT CHAIR: section, LEEP (Cervical surgery) - Present Medications Home Medications: Ambulatory Orders Medication Instructions Recorded Confirmed No Known Home Medications 07/11/21 07/11/21 - Allergies Allergies/Adverse Reactions: Allergies Allergy/AdvReac Type Severity Reaction Status Date / Time No Known Drug Allergies Allergy Verified 07/11/21 21:37 - Social History Does the pt smoke?: No Smoking Status: Never smoker PD ED PE NORMAL - General General: Alert and oriented X 3, No acute distress, Well developed/nourished - HEENT HEENT: Atraumatic, Moist mucous membranes - Neck Neck: Supple, no meningeal sign - Cardiac Cardiac: RRR, Strong equal pulses - Respiratory Respiratory: No respiratory distress, Clear bilaterally - Abdomen Abdomen: Normal bowel sounds, Soft, Non tender, Non distended - Back Back: No CVA TTP - Derm Derm: Normal color, No rash - Extremities Extremities: No deformity, No edema - Neuro Neuro: Normal speech - Psych Psych: Normal mood Results - Vitals Vitals: Vital Signs - 24 hr 07/11/21 07/11/21 21:33 23:55 Temperature 36.7 C 36.6 C Heart Rate 75 72 Respiratory 18 18 Rate Blood Pressure 143/85 H 128/79 O2 Saturation 100 100 Oxygen O2 Source Room air - Labs Labs: Laboratory Tests 07/11/21 07/11/21 07/11/21 21:50 21:54 21:54 WBC 10.1 RBC 4.21 Hgb 12.6 Hct 36.7 L MCV 87.2 MCH 29.9 MCHC 34.3 RDW 12.3 Plt Count 443 MPV 8.7 Neut # (Auto) 5.9 Lymph # (Auto) 2.8 Gulf # (Auto) 0.7 Eos # (Auto) 0.6 Baso # (Auto) 0.1 Absolute Nucleated RBC 0.00 Nucleated RBC % 0.0 Sodium Potassium Chloride Carbon Dioxide Anion Gap BUN Creatinine Estimated GFR (MDRD) Glucose Calcium Total Bilirubin AST ALT Alkaline Phosphatase Total Protein Albumin Globulin Albumin/Globulin Ratio HCG, Quant Urine Color YELLOW Urine Clarity CLEAR Urine pH 6.5 Ur Specific [place]ascade 1.010 Urine Protein NEGATIVE Urine Glucose (UA) NEGATIVE Urine Ketones NEGATIVE Urine Occult Blood LARGE H Urine Nitrite NEGATIVE Urine Bilirubin NEGATIVE Urine Urobilinogen 0.2 (NORMAL) Ur Leukocyte Esterase NEGATIVE Urine RBC 0-5 Urine WBC 0-3 Ur Squamous Epith Cells FEW Squamous Urine Bacteria None Seen Ur Microscopic Review INDICATED Urine Culture Comments NOT INDICATED Blood Type A POSITIVE 07/11/21 07/11/21 21:54 21:54 WBC RBC Hgb Hct MCV MCH MCHC RDW Plt Count MPV Neut # (Auto) Lymph # (Auto) Gulf # (Auto) Eos # (Auto) Baso # (Auto) Absolute Nucleated RBC Nucleated RBC % Sodium 135 Potassium 4.0 Chloride 102 Carbon Dioxide 23 Anion Gap 10.0 BUN 12 Creatinine 0.5 Estimated GFR (MDRD) 137 Glucose 101 H Calcium 9.2 Total Bilirubin 0.3 AST 24 ALT 43 Alkaline Phosphatase 24 L Total Protein 7.4 Albumin 4.1 Globulin 3.3 Albumin/Globulin Ratio 1.2 HCG, Quant 88704.00 Urine Color Urine Clarity Urine pH Ur Specific [place]ascade Urine Protein Urine Glucose (UA) Urine Ketones Urine Occult Blood Urine Nitrite Urine Bilirubin Urine Urobilinogen Ur Leukocyte Esterase Urine RBC Urine WBC Ur Squamous Epith Cells Urine Bacteria Ur Microscopic Review Urine Culture Comments Blood Type PD MEDICAL DECISION MAKING - ED course Complexity details: reviewed results, re-evaluated patient, d/w patient ED course: Patient with vaginal bleeding in first trimester .Labs obtained. Patient is hemodynamically stable. No significant tenderness on exam. Blood type is a positive, not needing RhoGAM. Ultrasound unfortunately shows demise. OB was consulted and offered patient various options. Patient is to follow-up as an outpatient. She is aware of return precautions. 2255 - Pt Aware of ultrasound results and that her fetus Does not show a heartbeat indicating demise. Patient denies any further bleeding, denies current pain. Patient is interested in hearing about options for treatment tonight. Discussed with Dr. Miranda, on-call OB, who graciously agrees to come to the emergency department to discuss options with patient. 2340 - Patient was seen by Dr. Miranda at the bedside and offered various treatment managements. Patient prefers to follow-up as an outpatient.No medications to be given at this time.Patient is aware of strict return precautions for severe bleeding, dizziness or severe pain. Departure - Departure Disposition: 01 Home, Self Care Clinical Impression: demise due to miscarriage Condition: Stable Instructions: ED Miscarriage Inevitable Follow-Up: Patricio Miranda MD [Provider Admit Priv/Credential] - Comments: Bertha - An ultrasound today showed that the baby/fetus no longer has a heartbeat and you are having a miscarriage. You were seen by an OB doctor today, Dr. Miranda, To discuss various treatment options. Please follow-up with the OB doctors as an outpatient.You may have increased bleeding and pain. If you have severe bleeding such as soaking through a pad an hour for several hours, intolerable pain, dizziness or have any concerns please return to the emergency department. Discharge Date/Time: 07/11/21 23:54
--- OUTSIDE RECORDS SUMMARY | 2021-07-11 21:57 | EXTERNAL MEDICAL SUMMARY RPT | Continuity of Care Document ---
:1980 Author Organization [facility] Address [address] [place] [address] Phone Care Team Providers Name Role Phone Miscellaneous Unavailable Unavailable Allergies No information. Encounters No information. Medications date description facility [id number] Acetaminophen 500 MG Oral Tablet [facility] Problems Procedures date description facility [id number] [facility] [id number] [facility] Results No information.
[2021-07-11 22:00] LABS: BASOPHILS # (AUTO) 0.1 10^3/uL (0.0-0.1); BASOPHILS % (AUTO) 0.5 %; EOSINOPHILS # (AUTO) 0.6 10^3/uL (0.0-0.7); EOSINOPHILS % (AUTO) 6.3 %; HCT - HEMATOCRIT 36.7 % (37.0-47.0); HGB - HEMOGLOBIN 12.6 g/dL (12.0-16.0); LYMPHOCYTES # (AUTO) 2.8 10^3/uL (1.5-3.5); LYMPHOCYTES % (AUTO) 27.4 %; MEAN CORPUSCULAR HEMOGLOBIN 29.9 pg (27.0-31.0); MEAN CORPUSCULAR HGB CONC 34.3 g/dL (32.0-36.0); MEAN CORPUSCULAR VOLUME 87.2 fL (81.0-99.0); MEAN PLATELET VOLUME 8.7 fL (7.9-10.8); MONOCYTES # (AUTO) 0.7 10^3/uL (0.0-1.0); NEUTROPHILS # (AUTO) 5.9 10^3/uL (1.5-6.6); NEUTROPHILS % (AUTO) 58.5 %; PLT - PLATELET COUNT 443 10^3/uL (130-450); RED BLOOD COUNT 4.21 10^6/uL (4.20-5.40); RED CELL DISTRIBUTION WIDTH 12.3 % (12.0-15.0); WHITE BLOOD COUNT 10.1 x10^3/uL (4.8-10.8)
[2021-07-11 22:01] LABS: BILIRUBIN,URINE NEGATIVE (NEGATIVE); CLARITY,URINE CLEAR (CLEAR); GLUCOSE, URINE (UA) NEGATIVE (NEGATIVE); KETONES,URINE (UA) NEGATIVE (NEGATIVE); LEUKOCYTE ESTERASE, URINE NEGATIVE (NEGATIVE); NITRITE,URINE NEGATIVE (NEGATIVE); OCCULT BLOOD,URINE LARGE (NEGATIVE); PH,URINE 6.5 PH (5.0-7.5); PROTEIN,URINE NEGATIVE (NEGATIVE); UROBILINOGEN,URINE 0.2 (NORMAL) E.U./dL (NORMAL)
[2021-07-11 22:10] LABS: BACTERIA,URINE None Seen /HPF (None Seen); RBC,URINE 0-5 /HPF (0-5); SQUAMOUS EPITHELIAL CELL,UR FEW Squamous (<= Few); WBC,URINE 0-3 /HPF (0-5)
[2021-07-11 22:11] LABS: ALBUMIN 4.1 g/dL (3.2-5.5); ALBUMIN/GLOBULIN RATIO 1.2 (1.0-2.2); BILIRUBIN,TOTAL 0.3 mg/dL (0.2-1.0); CALCIUM 9.2 mg/dL (8.5-10.3); CREATININE 0.5 mg/dL (0.4-1.0); TOTAL PROTEIN 7.4 g/dL (6.7-8.2)
--- NOTE | 2021-07-11 22:57 | Ultrasound Report ---
PROCEDURE: OB First Trimester INDICATIONS: pain/bleeding OUTSIDE/PRIOR DATING DATA: Last menstrual period (LMP): 04/21/2021. LMP-based estimated date of delivery (STEVIE): 01/26/2022. First dating scan (date and location): 06/28/21. Estimated date of delivery (STEVIE) from first dating scan: 01/31/2022. TECHNIQUE: Real-time scanning was performed of the fetus and maternal pelvic organs, with image documentation. COMPARISON: 06/28/21 FINDINGS: Embryo: There is an intrauterine with a gestational sac, slightly exact, and pole re demonstrated. No heart motion was identified on the current study. The crown-rump length measur es 2.5 cm corresponding to gestational age of 9 weeks 2 days, discordant with expected interval growt h compared to the prior study on which the measurements correspond to a gestational age of 9 weeks 0 days. There is a small hypoechoic perigestational region suggestive of a subchorionic hematoma measur ing approximately 2 x 1.5 0.5 cm by radiology 1999 she Measurement variability in dating: +/- 4 weeks by LMP, +/- 7 days by mean sac diameter (use before 6 weeks gestation if crown-rump length not able to be measured), +/- 5 days by crown-rump length (6-12 weeks gestation). Maternal organs: Ovaries appear grossly normal size limits on limited evaluation. No discrete adnexa l mass identified. IMPRESSION: 1. Single intrauterine redemonstrated with no heart motion identified. There are grow th is also less than expected compared to the prior study. The findings are consistent with dem ise. Findings discussed with Dr. Sharma on 07/12/2021 at 10:53 PM. Reviewed by: Jose Butler MD on 07/11/2021 10:55 PM PDT Approved by: Jose Butler MD on 07/11/2021 10:55 PM PDT Station ID: [id number]
--- NOTE | 2021-07-11 23:44 | CONSULTATION NOTE ---
Surgery Consult - Home Meds/Allergies Home Medications: Patient History Medication Instructions Recorded Confirmed No Known Home Medications 07/11/21 07/11/21 Allergies/Adverse Reactions: Allergies Allergy/AdvReac Type Severity Reaction Status Date / Time No Known Drug Allergies Allergy Verified 07/11/21 21:37 - Vital Signs Vital Signs: Last Vital Signs Temp 98.1 F 07/11/21 21:33 Pulse 75 07/11/21 21:33 Resp 18 07/11/21 21:33 BP 143/85 H 07/11/21 21:33 Pulse Ox 100 07/11/21 21:33 - Lab Results Result Diagrams: 07/11/21 21:54 07/11/21 21:54 - Consultation Note Consultation Note: HPI: Patient is a 40-year-old at approximately 11 weeks gestation by 9-week ultrasound who presents today with a small amount of vaginal bleeding. I was consulted day because ultrasound today showed no significant interval growth since her last ultrasound, and she no longer had cardiac activity. She noticed the vaginal bleeding when she went to the bathroom and wiped. Denies nausea and vomiting. Denies urinary urgency or dysuria. She does have an ongoing cough that is persisted for approximately 3 months. She is otherwise well. All other symptoms reviewed and were negative except per HPI. 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 11/11/2014, 37 weeks 3 days, section, nonreassuring heart tracing, vertical skin incision, 3212 g 2. 01/23/2018, 30 weeks, repeat low-transverse section 3. 01/19/2021, 20 weeks, IUFD, Edward syndrome SH Denies tobacco, alcohol, drugs Family History Brother: Asthma Maternal grandmother: Stomach cancer Maternal grandmother: Hypertension Allergies No known drug allergies Medications No current medications Physical exam: General: Alert, oriented, no acute distress, occasionally tearful Head: Normal cephalic atraumatic Respiratory: Normal rate of respiration. No accessory muscle use, normal respiratory effort. Cardiovascular: Regular rate and rhythm Abdomen: Gravid, soft, nontender, nondistended Neuro: Oriented x3. Normal movements Psych: Appropriate mood and affect. Normal judgment and insight : Deferred Plan 40-year-old -1-0-2 at 11 weeks 4 days gestation with early loss 1. Early loss -No interval growth since ultrasound on 06/28/2021 with no cardiac activity after presence on previous scan. -Blood type a positive, Normal H/H for . -Patient was counselled on options including expectant management, medical management, and surgical management. She understands that approximately 80% of patients will spontaneously resolve a missed . We discussed that rates are similar with medical management, but that this would make the timing more predictable. We also discussed definitive management with D&C. Discussed risks and benefits of all options. Counselled patient that approximately 50% of pregnancies end in miscarriage and that there is nothing that she did or did not do that caused the loss of the . Patient was given bleeding precautions and to return to ED if she soaks greater than 2 pads and hour for 2 hours. She is somewhat interested in undergoing MicroArray testing due to her history of fetus with Rosenbaum syndrome and subsequent demise last fall and current miscarriage. Discussed that her situation is complicated given to normal, healthy pregnancies followed by a known aneuploidy and a current early loss. While this early loss is likely another aneuploidy, we often get no definitive answer unless aggressive testing is done, and sometimes not even then. Patient was advised that insurance would likely not cover this testing, but if she desired to pursue, we can help arrange this. Collection of tissue would be easier during a suction D&C rather than a medically managed or expectantly manage . She plans to discuss therapeutic and testing options with her partner prior to making a decision. 2. History of fetus with Rosenbaum syndrome 3. History of intrauterine demise 4. 11 weeks gestation
[2021-07-11 23:56] VITALS: BP 128/79
== END 2021-07-11 23:54 | disposition home or self-care (01) ==
LOC: ED 21:30
DX: O03.9 Complete or unspecified spontaneous abortion without complication (principal); Z3A.11 11 weeks gestation of pregnancy
CPT/HCPCS: 36415; 80053; 81001; 81003; 84702; 85025; 86900; 86901; 87086; 99282; 99284